=== PATIENT | female | born 1960 | race Caucasian/White ===

== ENCOUNTER 2022-04-07 09:32 | Outpatient (CLI) | payer BC, SELFPAY ==
--- NOTE | 2022-04-07 09:44 | MM_ITS ---
WS: [id number] SCREENING DIGITAL BREAST TOMOSYNTHESIS MAMMOGRAM WITH CAD HISTORY: SCREENING COMPARISON: 01/15/2018 and 09/08/2016 Bilateral CC and MLO with tomosynthesis and synthetic mammography submitted. Computer aided detection analyzed. Breast composition: There are scattered areas of fibroglandular density. Asymmetry measuring 8 mm in the anterior RIGHT breast just lateral to the nipple. This is along the inferior breast. Seen only on the CC projection therefore suspect this is probably superimposed fibroglandular tissue. MM/[place] [id number] IMPRESSION: BI-RADS: 0-Incomplete: Need additional imaging evaluation FOLLOW UP: Need Additional Imaging RIGHT breast: Spot compression views (CC ). True ML. Ultrasound to follow if ab normality persists.
== END 2022-04-07 09:33 | disposition home or self-care (01) ==
LOC: RAD 09:33
PROVIDERS: PCP Family Medicine; Visit Provider Family Medicine
DX: Z12.31 Encounter for screening mammogram for malignant neoplasm of breast (principal)
CPT/HCPCS: 77063; 77067

== ENCOUNTER 2022-04-29 07:09 | Outpatient (CLI) | payer BC, SELFPAY ==
--- NOTE | 2022-04-29 07:30 | MM_ITS ---
WS: [id number] ADDITIONAL VIEWS RIGHT MAMMOGRAM WITH DIGITAL BREAST TOMOSYNTHESIS. RIGHT BREAST ULTRASOUND HISTORY: Abnormal mammogram COMPARISON: 04/07/2022, 01/15/2018 RIGHT MAMMOGRAM: Spot compression views and true ML with digital breast tomosynthesis and SM. Very subtle asymmetry persists lateral to the nipple and just above the nipple. Tubular mass measurin g 9 x 4 mm. No distortion or nipple retraction. RIGHT BREAST ULTRASOUND 2-D and color Doppler imaging submitted. Abnormality seen on the mammogram corresponds to a mildly dilated duct. There is debris within the du ct but no increased vascularity. The debris within the duct measures 7 x 4 x 6 mm and corresponds to the mammographic abnormality. Favor duct ectasia. There is no increased vascularity. MM/[place] [id number] IMPRESSION: BI-RADS: 3-Probably Benign FOLLOW UP: 6 Month Follow-up Recommend follow-up RIGHT breast ultrasound in 6 months to reevaluate the mildl y dilated duct with debris. Important to document stability.
== END 2022-04-29 07:10 | disposition home or self-care (01) ==
PROVIDERS: PCP Family Medicine; Visit Provider Family Medicine
DX: R92.8 Other abnormal and inconclusive findings on diagnostic imaging of breast (principal)
CPT/HCPCS: 76642; 77061; G0279

== ENCOUNTER → 2022-05-23 08:51 | Outpatient (BNVA) | payer BC, SELFPAY | PROVIDERS: PCP Family Medicine; Referring Provider Nurse Practitioner Family; Visit Provider Specialist | DX: M16.11 Unilateral primary osteoarthritis, right hip (principal); M87.00 Idiopathic aseptic necrosis of unspecified bone | CPT/HCPCS: 73502 ==

== ENCOUNTER 2022-06-21 07:00 | Outpatient (CLI) | payer BC, SELFPAY ==
--- NOTE | 2022-06-21 07:15 | MR_ITS ---
WS: [email or web address] EXAMINATION: MR hip RT wo con* [id number] ORDER DATE: 06/21/2022 7:23 AM COMPARISON: Radiograph May 23, 2022 HISTORY: hip pain CONTRAST: None. TECHNIQUE: Coronal STIR of the Pelvis. Coronal proton density, coronal T1, axial T2 fat sat, axial T1 , sagittal T2 fat sat, and sagittal T1 performed of the hip. After contrast, axial T1 fat sat, coron al T1 fat sat, and sagittal T1 fat sat were performed. FINDINGS: Some images limited due to body habitus. Moderate degenerative arthritis RIGHT hip with joint space narrowing. Small amount of degenerative ed benjamin involving the femoral head and neck. Suggestion of a tiny nondisplaced fracture or stress fractur e involving the RIGHT femoral neck with associated edema. This extends along the medial femoral neck cortex. Normal RIGHT acetabulum. Normal RIGHT ilium. Degenerative arthritis pubic symphysis. Sigmoid diverticulosis. Degenerative arthritis RIGHT sacroiliac joint. MR/MR hip RT wo con* [id number] IMPRESSION: Images are limited due to body habitus. 1. Moderate degenerative arthritis RIGHT hip with edema involving the femoral head and neck. 2. Suggestion of a tiny possible nondisplaced fracture line involving the femo ral neck with associated edema. This is equivocal. Consider further evaluation with RIGHT hip CT for more definitive evaluation. 3. Sigmoid diverticulosis. 4. No other acute findings.
== END 2022-06-21 07:01 | disposition home or self-care (01) ==
LOC: RAD 07:01
PROVIDERS: PCP Family Medicine; Visit Provider Specialist
DX: M16.11 Unilateral primary osteoarthritis, right hip (principal); K57.30 Diverticulosis of large intestine without perforation or abscess without bleeding
CPT/HCPCS: 73721

== ENCOUNTER 2022-10-31 10:21 | Outpatient (CLI) | payer BC, SELFPAY ==
--- NOTE | 2022-10-31 10:31 | US_ITS ---
WS: [email or web address] ULTRASOUND RIGHT BREAST HISTORY: 6MFU, prominent duct. COMPARISON: 04/29/2022 TECHNIQUE: 2-D and Doppler. Again noted is a very mildly prominent duct in the right breast at 10:00. There is less debris within the duct and the duct appears to slightly less prominent. No increased vascularity. The area of mild soft tissue thickening measures 5 x 5 x 3 mm which is probably residual debris which has decreased a lso in size. IMPRESSION: US/US breast RT limited* [id number] BI-RADS: 2-Benign FOLLOW-UP: 1 Year Follow-up Patient to return to annual screening mammography. Return to screening if there is no bloody nipple discharge. Screening mammogram should be in April 2023.
== END 2022-10-31 10:22 | disposition home or self-care (01) ==
PROVIDERS: PCP Nurse Practitioner Family; Visit Provider Nurse Practitioner Family
DX: R92.8 Other abnormal and inconclusive findings on diagnostic imaging of breast (principal)
CPT/HCPCS: 76642

== ENCOUNTER 2024-05-30 09:54 | Outpatient (CLI) | payer OTHER, SELFPAY ==
--- NOTE | 2024-05-30 09:58 | CTR_ITS ---
PROCEDURE INFORMATION: Exam: CT Abdomen And Pelvis Without And With Contrast Exam date and time: 05/30/2024 11:02 AM Age: 64 years old Clinical indication: Abdominal pain; Localized; Right upper quadrant (ruq); Prior surgery; Surgery date: 6+ months; Surgery type: Hyst; Follow up US, right upper quadrant pain since mar 21 TECHNIQUE: Imaging protocol: Computed tomography of the abdomen and pelvis without and with contrast. Radiation optimization: All CT scans at this facility use at least one of these dose optimization techniques: automated exposure control; mA and/or kV adjustment per patient size (includes targeted exams where dose is matched to clinical indication); or iterative reconstruction. Contrast material: OMNI 350; Contrast volume: 100 ml; Contrast route: INTRAVENOUS (IV); COMPARISON: CR XR hip RT 2-3V wo/w pel* [id number] 05/23/2022 9:00 AM RADIATION DOSE METRICS: Total DLP (mGy-cm): 2404.77 FINDINGS: Lungs: Lung bases are unremarkable. Liver: The liver is unremarkable. Gallbladder and biliary ducts: Multiple gallstones/sludge are present. No pericholecystic inflammatory changes to suggest cholecystitis. Pancreas: Pancreas is unremarkable. No ductal dilation or peripancreatic inflammation. Spleen: The spleen is unremarkable. There is a splenule anterior to the spleen. Adrenal glands: Adrenal glands are unremarkable. Kidneys and ureters: No hydronephrosis or nephrolithiasis. Bilateral subcentimeter renal hypodensities which are too small to characterize and likely represent renal cysts. Stomach and bowel: Stomach is mildly distended and contains contrast. Small and large bowel are normal in caliber without evidence of obstruction. Diverticulosis without evidence of diverticulitis. Appendix: The appendix is visualized and contains contrast and air. Intraperitoneal space: No free intraperitoneal air. No significant fluid collection. Vasculature: There is no aortic aneurysm. There is atherosclerotic disease. Portal vein is patent. Lymph nodes: No pathologically enlarged lymph nodes (by short axis size criteria). Urinary bladder: Bladder is distended with no focal wall thickening. Reproductive: There has been a hysterectomy. No adnexal cysts or masses are identified. Bones/joints: No acute osseous abnormality. There is degenerative disease of the spine. Soft tissues: There is a small fat containing umbilical hernia. CT/CT abdomen pelvis wo/w [id number] IMPRESSION: No acute findings. COMMENTS: Consistent with the [employer]'s Incidental Findings Committee white paper (J Am Iram Radiol 2018): Any incidental renal lesion less than 1 cm or classified as too small to characterize, or any incidental cystic renal lesion characterized as simple-appearing, is likely benign. No follow-up imaging is recommended for these lesions per consensus recommendations based on imaging criteria.
[2024-05-30] MEDS: iohexol 350 mg/mL 500 mL Btl (per mL) PO (10:55)
[2024-05-30] MEDS: iohexol 350 mg/mL 500 mL Btl (per mL) IV (11:15)
== END 2024-05-30 09:55 | disposition home or self-care (01) ==
PROVIDERS: PCP Nurse Practitioner Family; Visit Provider Nurse Practitioner Family
DX: R10.11 Right upper quadrant pain (principal); K80.20 Calculus of gallbladder without cholecystitis without obstruction; K31.89 Other diseases of stomach and duodenum; K57.90 Diverticulosis of intestine, part unspecified, without perforation or abscess without bleeding; I70.90 Unspecified atherosclerosis; N32.89 Other specified disorders of bladder; Z90.710 Acquired absence of both cervix and uterus; M47.9 Spondylosis, unspecified; K42.9 Umbilical hernia without obstruction or gangrene
CPT/HCPCS: 74178

== ENCOUNTER 2024-07-19 07:49 | Outpatient (CLI) | payer OTHER, SELFPAY ==
--- NOTE | 2024-07-19 08:00 | NM_ITS ---
WS: [email or web address] NUCLEAR MEDICINE HIDA SCAN CLINICAL INFORMATION: RUQ PAIN TECHNIQUE: Following intravenous administration of 7.9 mCi of technetium 99m mebrofenin, images of the abdomen were obtained over the course of 60 minutes. Next, gallbladder ejection fraction was determined by obtaining preprandial and one-hour postprandial images of the gallbladder following oral ingestion of Ensure. COMPARISON: Ultrasound 04/18/2024 FINDINGS: Mild hepatomegaly. Normal hepatic uptake at 5 minutes. Normal hepatic excretion. Gallbladder is visualized by 10 minutes. No evidence of acute cholecystitis. Normal common bile duct and small bowel activity. Gallbladder ejection fraction 93% within normal limits. No evidence of chronic cholecystitis. NM/NM hepatobiliary w phar* [id number] IMPRESSION: 1. No evidence of acute or chronic cholecystitis. 2. Gallbladder ejection fraction 93% within normal limits. 3. Hepatomegaly.
== END 2024-07-19 07:50 | disposition home or self-care (01) ==
PROVIDERS: PCP Nurse Practitioner Family; Visit Provider Nurse Practitioner Family
DX: R10.11 Right upper quadrant pain (principal); R16.0 Hepatomegaly, not elsewhere classified
CPT/HCPCS: 78227; A9537

== ENCOUNTER 2024-12-17 07:52 | Outpatient (CLI) | payer OTHER, SELFPAY ==
--- NOTE | 2024-12-17 07:56 | MM_ITS ---
WS: [email or web address] BILATERAL 3D TOMOSYNTHESIS DIGITAL SCREENING MAMMOGRAPHY WITH CAD CLINICAL INFORMATION: SCREENING HISTORY: Screening mammogram. No current complaints. COMPARISON: 2023 TECHNIQUE: Bilateral CC and MLO views. FINDINGS: Scattered fibroglandular densities bilaterally. No suspicious focal mass, asymmetry, calcifications, or architectural distortion. No evidence of malignancy. Vascular calcification. A few incidental punctate and lucent centered calcifications. MM/MM scr tomosynthesis [id number] IMPRESSION: DENSITY: There are scattered areas of fibroglandular density. BI-RADS: 2 - Benign. FOLLOW UP: 1 Year Follow-up Recommend return to annual screening mammography.
== END 2024-12-17 07:53 | disposition home or self-care (01) ==
LOC: RAD 07:53
PROVIDERS: PCP Nurse Practitioner Family; Visit Provider Nurse Practitioner Family
DX: Z12.31 Encounter for screening mammogram for malignant neoplasm of breast (principal); R92.323 Mammographic fibroglandular density, bilateral breasts; R92.1 Mammographic calcification found on diagnostic imaging of breast
CPT/HCPCS: 77063; 77067